=== PATIENT | female | born 1945 | race Hispanic/Latino ===

== ENCOUNTER 2018-11-22 23:04 | Emergency (ER) | payer MEDICARE ==
[~2018-11-22] VITALS: Ht 160 cm; Wt 81.6 kg
--- OUTSIDE RECORDS SUMMARY | 2018-11-22 23:07 | XMS REPORT | Summary of Care ---
Author Author Collins Hurst Organization Unknown Address [facility] Phone Unavailable Care Team Providers Care Medical Lead Name Role Phone EMMANUEL Jacinto, ALEA Unavailable Unavailable [facility], [facility] Unavailable Unavailable FIDEL Jacinto, STEPHAN Unavailable Unavailable LIBBY BARRON MD Unavailable Unavailable Stephan Schaefer MD Unavailable Unavailable Unavailable Unavailable Functional Status Name Dates Details Functional status health issues are not documented Status: Name Dates Details Cognitive status health issues are not documented Status: Problems Name Dates Details Pre-procedure lab exam (V72.63, Z01.812) Status: Active Arthritis (716.90, M19.90) Status: Active Localized primary osteoarthritis of right lower leg (715.16, M17.11) Status: Active Knee pain (719.46, M25.569) Status: Active Limb pain (729.5, M79.609) Status: Active Preoperative clearance (V72.84, Z01.818) Status: Active Encounter to establish care with new doctor (V65.8, Z76.89) Status: Active CAD S/P percutaneous coronary angioplasty (414.01, I25.10) Status: Active Diabetes (250.00, E11.9) Status: Active Hyperlipidemia (272.4, E78.5) Status: Active Hypertension (401.9, I10) Status: Active Exertional angina (413.9, I20.8) Status: Active Medications Name Dates Details Novolin L 100 UNIT/ML SUSP 30 IN THE MORNING AND 15 IN THE EVENING Active Losartan Potassium 100 MG Oral Tablet TAKE 1 TABLET DAILY * Refills: 1 Active 30 Tablet Bottle Linzess 290 MCG Oral Capsule 1 tablet daily * Refills: 0 Active Atorvastatin Calcium 40 MG Oral Tablet 1 tablet daily * Refills: 0 Active Levothyroxine Sodium 50 MCG Oral Tablet TAKE 1 TABLET DAILY. * Refills: 0 Active MetFORMIN HCl - 500 MG Oral Tablet TAKE 1 TABLET TWICE DAILY * Refills: 0 Active Carvedilol 6.25 MG Oral Tablet TAKE 1 TABLET TWICE DAILY * Quantity: 60 Refills: 5 STEPHAN SCHAEFER M.D. * Start : 06-May-2015 Active Meloxicam 7.5 MG Oral Tablet TAKE 1 TABLET BY MOUTH EVERY DAY NEEDED PAIN * Quantity: 30 Refills: 2 ALEA BENITEZ M.D. * Start : 21-Sep-2015 Active Clopidogrel Bisulfate 75 MG Oral Tablet TAKE 1 TABLET BY MOUTH DAILY * Quantity: 30 Refills: 5 STEPHAN SCHAEFER M.D. * Start : 15-Nov-2016 Active Doc-Q-Lace 100 MG CAPS TAKE 1 CAPSULE DAILY * Refills: 0 Active Aspirin 81 MG TABS TAKE 1 TABLET DAILY. * Refills: 0 Active Novolin L 100 UNIT/ML SUSP INJECT 34 UNITS IN THE AM AND 14 UNITS EVENING * Refills: 0 Active Allergies and Adverse Reactions Name Dates Details Penicillins (Allergy) Status: Active Procedures Procedure Dates Details History of Hysterectomy Completed Immunization Name Dates Details Immunizations not documented Family History Name Dates Details Family history of diabetes mellitus (V18.0, Z83.3) Status: Active Social History Name Dates Details - Status: Name Dates Details Never smoker Vital Signs Date Test Result Details No Known Vitals to report Results Date Description Value Details Results not documented Plan of Care Name Dates Details Planned Observations Planned Goals not documented Planned Encounters Appointment; STEPHAN SCHAEFER M.D. On: 19-Nov-2017 14:20 Instructions Name Dates Details Instructions not documented Encounters Appointment; STEPHAN SCHAEFER M.D. Encounter Diagnosis: Problem not documented On: 27-Mar-2016 11:00 Appointment; ALEA BENITEZ M.D. Encounter Diagnosis: Problem not documented On: 29-Mar-2016 11:00 Appointment; ALEA BENITEZ M.D. Encounter Diagnosis: Problem not documented On: 05-Apr-2016 11:15 Appointment; STEPHAN SCHAEFER M.D. Encounter Diagnosis: Problem not documented On: 25-Sep-2016 9:20 Appointment; STEPHAN SCHAEFER M.D. Encounter Diagnosis: Problem not documented On: 05-Oct-2016 13:20 Appointment; STEPHAN SCHAEFER M.D. Encounter Diagnosis: Problem not documented On: 10-Apr-2017 14:20 Appointment; STEPHAN SCHAEFER M.D. Encounter Diagnosis: Problem not documented On: 10-Sep-2017 10:00 Appointment; [facility] ECHO Encounter Diagnosis: Problem not documented On: 12-Nov-2017 8:00 Appointment; [facility] NUCLEAR Encounter Diagnosis: Problem not documented On: 19-Nov-2017 8:00
--- OUTSIDE RECORDS SUMMARY | 2018-11-22 23:07 | XMS REPORT | Continuity of Care Document ---
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 Name Role Phone [facility] [employer] Unavailable Unavailable Problems Problem Status Onset Date Classification Date Reported Comments Source Hypertension Active Problem 09/30/2017 [facility] Hypertensive emergency without congestive heart failure Active Problem 09/30/2017 [facility] Medications Medication Details Route Status Patient Instructions Ordering Provider Order Date Source Amlodipine Besylate 10 Mg Tablet Daily Active [place] 09/30/2017 [facility] Atorvastatin Calcium 10 Mg Tablet, 10 Mg Oral Bedtime Active 09/30/2017 [facility] Lisinopril 10 Mg Tablet, 10 Mg Oral Daily Active 09/30/2017 [facility] Insulin Regular, Human (Humulin R) 100 Unit/1 Ml Vial, 34 Units Subcutaneously Before Breakfast Active 09/29/2017 [facility] Insulin Regular, Human (Humulin R) 100 Unit/1 Ml Vial, 14 Units Subcutaneously Bedtime Active 09/29/2017 [facility] Losartan Potassium 25 Mg Tablet, Active 09/29/2017 [facility] Aspirin (Aspir 81) 81 Mg Tablet.dr Peter Active [facility] Atorvastatin Calcium 20 Mg Tablet Bedtime Active [facility] Carvedilol 3.125 Mg Tablet Twice A Day Active [facility] Clopidogrel Bisulfate (Clopidogrel) 75 Mg Tablet Daily Active [facility] Levothyroxine Sodium 50 Mcg Tablet Daily Active [facility] Linzess Daily Active [facility] Losartan Potassium 100 Mg Tablet Daily Active [facility] Meloxicam 7.5 Mg Tablet Daily Active [facility] Metformin Hcl 500 Mg Tablet Twice A Day Active [facility] Mirabegron (Myrbetriq) 25 Mg Tab.er.24h Twice A Day Active [facility] Allergies, Adverse Reactions, Alerts Substance Category Reaction Severity Reaction type Status Date Reported Comments Source PENNICILLIN RASH Intermediate Allergy to Substance Active 12/04/2014 [facility] Immunizations No Data Provided for This Section Results Order Name Results Value Reference Range Date Interpretation Comments Source Capillary blood glucose measurement by glucometer (mass/volume) Capillary blood glucose measurement by glucometer (mass/volume) 202 70 - 120 09/30/2017 [facility] Serum or plasma creatine kinase MB measurement (mass/volume) Serum or plasma creatine kinase MB measurement (mass/volume) 1.40 0 - 5.0 09/30/2017 [facility] Serum or plasma creatine kinase measurement (enzymatic activity/volume) Serum or plasma creatine kinase measurement (enzymatic activity/volume) 117 29 - 168 09/30/2017 [facility] Troponin I measurement by highly sensitive enzyme immunoassay Troponin I measurement by highly sensitive enzyme immunoassay <0.001 0 - 0.300 09/30/2017 [facility] Automated blood basophil count (count/volume) Automated blood basophil count (count/volume) 0.0 0.0 - 0.1 09/30/2017 [facility] Automated blood basophil count as percentage of total leukocytes Automated blood basophil count as percentage of total leukocytes 0.6 0.0 - 1.0 09/30/2017 [facility] Automated blood eosinophil count Automated blood eosinophil count 0.2 0.0 - 0.4 09/30/2017 [facility] Automated blood eosinophil count as percentage of total leukocytes Automated blood eosinophil count as percentage of total leukocytes 3.4 0.0 - 6.0 09/30/2017 [facility] Automated blood hematocrit (volume fraction) Automated blood hematocrit (volume fraction) 31.4 34.2 - 44.1 09/30/2017 [facility] Automated blood lymphocyte count as percentage ot total leukocytes Automated blood lymphocyte count as percentage ot total leukocytes 22.8 18.0 - 39.1 09/30/2017 [facility] Automated blood monocyte count as percentage of total leukocytes Automated blood monocyte count as percentage of total leukocytes 7.0 4.4 - 11.3 09/30/2017 [facility] Automated blood neutrophil count Automated blood neutrophil count 4.5 2.1 - 6.9 09/30/2017 [facility] Automated blood platelet count (count/volume) Automated blood platelet count (count/volume) 209 140 - 360 09/30/2017 [facility] Automated blood segmented neutrophil count as percentage of total leukocytes Automated blood segmented neutrophil count as percentage of total leukocytes 65.9 38.7 - 80.0 09/30/2017 [facility] Automated erythrocyte mean corpuscular hemoglobin (mass per erythrocyte) Automated erythrocyte mean corpuscular hemoglobin (mass per erythrocyte) 27.7 28 - 32 09/30/2017 [facility] Automated erythrocyte mean corpuscular hemoglobin concentration measurement (mass/volume) Automated erythrocyte mean corpuscular hemoglobin concentration measurement (mass/volume) 32.5 31 - 35 09/30/2017 [facility] Automated erythrocyte mean corpuscular volume Automated erythrocyte mean corpuscular volume 85.3 81 - 99 09/30/2017 [facility] Blood erythrocytes automated count (number/volume) Blood erythrocytes automated count (number/volume) 3.68 3.6 - 5.1 09/30/2017 [facility] Blood hemoglobin measurement (moles/volume) Blood hemoglobin measurement (moles/volume) 10.2 12.0 - 16.0 09/30/2017 [facility] Blood leukocytes automated count (number/volume) Blood leukocytes automated count (number/volume) 6.83 4.8 - 10.8 09/30/2017 [facility] Blood lymphocytes count (number/volume) Blood lymphocytes count (number/volume) 1.6 1.0 - 3.2 09/30/2017 [facility] Blood monocytes automated count (number/volume) Blood monocytes automated count (number/volume) 0.5 0.2 - 0.8 09/30/2017 [facility] Estimated glomerular filtration rate (GFR) determination Estimated glomerular filtration rate (GFR) determination 52 60 09/30/2017 [facility] Glucose measurement Glucose measurement 195 74 - 118 09/30/2017 [facility] Serum or plasma anion gap Serum or plasma anion gap 14.3 8 - 16 09/30/2017 [facility] Serum or plasma calcium measurement (mass/volume) Serum or plasma calcium measurement (mass/volume) 9.4 8.4 - 10.2 09/30/2017 [facility] Serum or plasma carbon dioxide, total measurement (moles/volume) Serum or plasma carbon dioxide, total measurement (moles/volume) 25 22 - 29 09/30/2017 [facility] Serum or plasma chloride measurement (moles/volume) Serum or plasma chloride measurement (moles/volume) 101 98 - 107 09/30/2017 [facility] Serum or plasma cholesterol in HDL measurement (mass/volume) Serum or plasma cholesterol in HDL measurement (mass/volume) 42 40 - 60 09/30/2017 [facility] Serum or plasma cholesterol in LDL measurement (mass/volume) Serum or plasma cholesterol in LDL measurement (mass/volume) 54 60 - 130 09/30/2017 [facility] Serum or plasma cholesterol measurement (mass/volume) Serum or plasma cholesterol measurement (mass/volume) 132 0 - 199 09/30/2017 [facility] Serum or plasma creatinine measurement (mass/volume) Serum or plasma creatinine measurement (mass/volume) 1.05 0.57 - 1.11 09/30/2017 [facility] Serum or plasma magnesium measurement (mass/volume) Serum or plasma magnesium measurement (mass/volume) 1.3 1.3 - 2.1 09/30/2017 [facility] Serum or plasma potassium measurement (moles/volume) Serum or plasma potassium measurement (moles/volume) 4.3 3.5 - 5.1 09/30/2017 [facility] Serum or plasma sodium measurement (moles/volume) Serum or plasma sodium measurement (moles/volume) 136 136 - 145 09/30/2017 [facility] Serum or plasma thyrotropin measurement by detection limit <=0.005 miu/l (units/volume) Serum or plasma thyrotropin measurement by detection limit <=0.005 miu/l (units/volume) 3.653 0.350 - 4.940 09/30/2017 [facility] Serum or plasma thyroxine (T4) free measurement (mass/volume) Serum or plasma thyroxine (T4) free measurement (mass/volume) 1.06 0.9 - 1.8 09/30/2017 [facility] Serum or plasma total cholesterol/cholesterol in HDL mass ratio Serum or plasma total cholesterol/cholesterol in HDL mass ratio 3.1 3.0 - 3.6 09/30/2017 [facility] Serum or plasma triglyceride measurement (mass/volume) Serum or plasma triglyceride measurement (mass/volume) 179 0 - 149 09/30/2017 [facility] Serum or plasma urea nitrogen measurement (mass/volume) Serum or plasma urea nitrogen measurement (mass/volume) 21 7 - 26 09/30/2017 [facility] Serum or plasma urea nitrogen/creatinine mass ratio Serum or plasma urea nitrogen/creatinine mass ratio 20 6 - 25 09/30/2017 [facility] Red Cell Distribution Width 14.4 11.7 - 14.4 09/30/2017 [facility] IM GRANULOCYTES % 0.3 0.0 - 1.0 09/30/2017 [facility] Absolute Immature Granulocyte (auto 0.02 0 - 0.1 09/30/2017 [facility] Hemoglobin A1c Percent 6.6 4.0 - 7.0 09/30/2017 [facility] B-Type Natriuretic Peptide 104.6 0 - 100 09/30/2017 [facility] Plasma globulin measurement (mass/volume) Plasma globulin measurement (mass/volume) 4.2 2.3 - 3.5 09/29/2017 [facility] Serum or plasma alanine aminotransferase measurement (enzymatic activity/volume) Serum or plasma alanine aminotransferase measurement (enzymatic activity/volume) 11 0 - 55 09/29/2017 [facility] Serum or plasma albumin measurement (mass/volume) Serum or plasma albumin measurement (mass/volume) 3.8 3.5 - 5.0 09/29/2017 [facility] Serum or plasma albumin/globulin mass ratio Serum or plasma albumin/globulin mass ratio 0.9 0.8 - 2.0 09/29/2017 [facility] Serum or plasma alkaline phosphatase measurement (enzymatic activity/volume) Serum or plasma alkaline phosphatase measurement (enzymatic activity/volume) 90 40 - 150 09/29/2017 [facility] Serum or plasma protein measurement (mass/volume) Serum or plasma protein measurement (mass/volume) 8.0 6.5 - 8.1 09/29/2017 [facility] Serum or plasma total bilirubin measurement (mass/volume) Serum or plasma total bilirubin measurement (mass/volume) 0.4 0.2 - 1.2 09/29/2017 [facility] Aspartate Amino Transf (AST/SGOT) 15 5 - 34 09/29/2017 [facility] Pathology Reports No Data Provided for This Section Diagnostic Reports No Data Provided for This Section Consultation Notes No Data Provided for This Section Discharge Summaries No Data Provided for This Section History and Physicals No Data Provided for This Section Vital Signs No Data Provided for This Section Encounters Location Location Details Encounter Type Encounter Number Reason For Visit Attending Provider ADM Date DC Date Status Source Discharged Inpatient (obs) [id number] BELLA JULES MD 09/29/2017 09/30/2017 [facility] Procedures Procedure Code Date Perfomer Comments Source Computed tomography of brain without radiopaque contrast [id number] 09/29/2017 [facility] Assessment and Plan No Data Provided for This Section Plan of Care Plan of Care Date Source Discharge Date 09/30/17 2:11pm Disposition HOME, SELF-CARE Instructions/Education Provided Hypertension Prescriptions See Medication Section Referrals (Family Practice) Order Date: 1-2 Weeks Entered Date: 09/30/2017 1:07pm Additional Instructions/Education Activity as tolerated ADA diet Resume home meds plus Amlodipine f/u PCP w/in 2wks 09/30/2017 [facility] Social History Social History Date Source Smoking Status Start Date Stop Date Unknown if ever smoked 09/30/2017 [facility] Family History No Data Provided for This Section Advance Directives Order Name Results Value Date Source Advance Directives Advance Directives Directive Response Recorded Date/Time Does the patient have an advance directive? No 09/29/17 10:06pm If yes, is advance directive on file with [facility]? No 12/04/14 11:01pm If not on file with [facility] will patient provide a copy? No 12/04/14 11:01pm Do you have a Directive to Physician? No 09/29/17 6:33pm Do you have a Medical Power of [employer]? No 09/29/17 6:33pm Do you have an out of hospital Do Not Resuscitate Order? No 09/29/17 6:33pm Do you have any special needs we should be aware of? No 09/29/17 6:33pm Do you have a support person here with you today? Yes 09/29/17 6:33pm Did patient receive Notice of Privacy Practices? Yes 09/29/17 6:33pm Did patient receive patient rights and responsibilities? Yes 09/29/17 6:33pm 09/30/2017 [facility] Functional Status No Data Provided for This Section
--- OUTSIDE RECORDS SUMMARY | 2018-11-22 23:07 | XMS REPORT ---
Author Author [facility] Address Unknown Phone Unavailable Care Team Providers Care First Crusher Name Role Phone BELLA JULES Unavailable Unavailable Problems This patient has no known problems. Allergies, Adverse Reactions, Alerts This patient has no known allergies or adverse reactions. Medications This patient has no known medications. Results Test Description Test Time Test Comments Text Results Atomic Results Result Comments CT BRAIN WO 2017-09-29 19:37:00 [place] [address] Patient Name: KATIE CRAIG MR #: [id number] : 1945 Age/Sex: 72/F Acct #: [id number] Req #: [id number] Adm Physician: BELLA JULES MD Ordered by: ANIBAL GRANGER MD Report #: [id number] Location: [facility] Room/Bed: [place] [address] Procedure: [id number] CT/CT BRAIN WO Exam Date: 09/29/17 Exam Time: 1850 REPORT STATUS: Signed ADDENDUM #1 Dose modulation, iterative reconstruction, and/or weight based adjustment of the mA/kV was utilized to reduce the radiation dose to as low as reasonably achievable. Signed by: Dr. Erica Guadalupe M.D. on 10/31/2017 1:46 AM ORIGINAL REPORT EXAMINATION: Head CT without contrast. HISTORY:Headache, high blood pressure. COMPARISON:CT brain from 12/04/2014. TECHNIQUE: Multidetector axial images were obtained from the foramen magnum to the vertex without contrast. The images were reconstructed using brain and bone algorithms. Thin section brain images were reformatted into coronal and sagittal planes. Intravenous contrast: None IMAGE QUALITY: Acceptable. FINDINGS: Skull/scalp: No lytic or blastic. les ions. No surgical changes. Parenchyma: No abnormal density. No acute hemorrhage, mass or acute major vascular territorial infarct. Arteries: Mild atherosclerotic calcification in bilateral carotid siphon. Dural sinuses: No abnormal density suggestive of thrombosis. Ventricles: No hydrocephalus or displacement. Extra-axial spaces: No abnormal density. Brain volume: Normal for age. Craniocervical junction: No mass, Chiari malformation, or basilar invagination. Sella: No mass. Paranasal/mastoid sinuses: Imaged portions unremarkable. IMPRESSION: No intracranial abnormality. Signed by: Dr. Erica Guadalupe M.D. on 09/29/2017 7:42 PM Dictated By: ERICA GUADALUPE MD [id number] Transcribed By: WILMER on 09/29/17 194 COPY TO: ANIBAL GRANGER MD
[2018-11-22] MEDS ORDERED: SODIUM CHLORIDE 0.9% 1000ML 1,000 ML IV STA (23:09)
[2018-11-22] MEDS ORDERED: ONDANSETRON HCL INJ 2MG/ML 2ML 2 MG/ML VIAL IV STA (23:09)
[2018-11-22] MEDS ORDERED: MORPHINE SULFATE INJ 4 MG/ML INJ 1ML IV STA (23:09)
[2018-11-22] MEDS ORDERED: ASPIRIN 81 MG CHEW TAB PO STA (23:09)
--- NOTE | 2018-11-23 00:16 | Diagnostic Imaging Report ---
EXAMINATION: CHEST SINGLE (PORTABLE) INDICATION: Chest pain, cough COMPARISON: None FINDINGS: AP view TUBES and LINES: None. LUNGS: Lungs are well inflated. Lungs are clear. There is no evidence of pneumonia or pulmonary edema. PLEURA: No pleural effusion or pneumothorax. HEART AND MEDIASTINUM: Borderline cardiomegaly. There are atherosclerotic calcifications within the aorta. BONES AND SOFT TISSUES: No acute osseous lesion. Soft tissues are unremarkable. Degenerative changes in the shoulders an spine. UPPER ABDOMEN: No free air under the diaphragm. IMPRESSION: Borderline cardiomegaly. Signed by: Ganesh Delgado DO on 11/23/2018 12:13 AM
[2018-11-23 00:35] LABS: BASOPHILS % 0.7 % (0.0-1.0); EOSINOPHILS # (AUTO) 0.3 (0.0-0.4); EOSINOPHILS % 5.4 % (0.0-6.0); HEMATOCRIT 32.1 % (34.2-44.1); HEMOGLOBIN 10.4 g/dL (12.0-16.0); LYMPHOCYTES # (AUTO) 1.4 (1.0-3.2); LYMPHOCYTES % 22.2 % (18.0-39.1); MEAN CORPUSCULAR HEMOGLOBIN 29.4 pg (28-32); MEAN CORPUSCULAR HGB CONC 32.4 g/dL (31-35); MEAN CORPUSCULAR VOLUME 90.7 fL (81-99); MONOCYTES # (AUTO) 0.4 (0.2-0.8); MONOCYTES % 7.2 % (4.4-11.3); NEUTROPHILS # (AUTO) 3.9 (2.1-6.9); NEUTROPHILS % 63.8 % (38.7-80.0); PLATELET COUNT 245 x10e3/uL (140-360); RED BLOOD COUNT 3.54 x10e6/uL (3.6-5.1); RED CELL DISTRIBUTION WIDTH 13.1 % (11.7-14.4)
[2018-11-23 00:56] LABS: ALANINE AMINOTRANSFERASE 12 IU/L (0-55); ALBUMIN/GLOBULIN RATIO 1.1 (0.8-2.0); ALKALINE PHOSPHATASE 125 IU/L (40-150); ANION GAP 16.2 mmol/L (8-16); BLOOD UREA NITROGEN 16 mg/dL (7-26); BUN/CREATININE RATIO 18 (6-25); CALCIUM 9.7 mg/dL (8.4-10.2); CARBON DIOXIDE 21 mmol/L (22-29); CHLORIDE 98 mmol/L (98-107); CREATINE KINASE 94 IU/L (29-168); CREATININE, SERUM 0.91 mg/dL (0.57-1.11); EST GLOMERULAR FILTRATION RATE > 60 ML/MIN (60-); GLUCOSE 164 mg/dL (74-118); POTASSIUM 4.2 mmol/L (3.5-5.1); SODIUM 131 mmol/L (136-145)
--- NOTE | 2018-11-23 01:44 | NUR ---
PT STATES SHE IS NO LONGER IN PAIN, REFUSES MORPHINE/ZOFRAN
[2018-11-23 02:00] VITALS: BP 132/51
== END 2018-11-23 02:00 | disposition home or self-care (01) ==
LOC: ER 23:04
DX: R07.89 Other chest pain (principal); R00.1 Bradycardia, unspecified
CPT/HCPCS: 36415; 71045; 80053; 82550; 82553; 84484; 85025; 93005; 99284; J7030; J2270; J2405

== ENCOUNTER 2020-09-24 00:29 | Emergency (ER) | payer MEDICARE, OTHER ==
[~2020-09-24] VITALS: Ht 157.5 cm; Wt 76.2 kg
[2020-09-24] MEDS ORDERED: NITROGLYCERIN 2% OINT 1 GM PKT TOP ONE (01:15)
[2020-09-24] MEDS ORDERED: HYDRALAZINE HCL 20 MG/ML VIAL IV ONE (01:15)
[2020-09-24] MEDS ORDERED: ACETAMINOPHEN 325 MG TAB PO ONE (01:15)
[2020-09-24] MEDS ORDERED: AMLODIPINE BESYL5 MG PO (01:18)
[2020-09-24] MEDS ORDERED: HYDRALAZINE HCL 20 MG/ML VIAL ONE (01:27)
[2020-09-24] MEDS ORDERED: NITROGLYCERIN 2% OINT 1 GM PKT ONE (01:28)
[2020-09-24] MEDS ORDERED: ACETAMINOPHEN 325 MG TAB ONE (01:28)
[2020-09-24 02:18] VITALS: BP 145/65
== END 2020-09-24 02:18 | disposition home or self-care (01) ==
LOC: FSED 01:15
DX: I16.0 Hypertensive urgency (principal); R42 Dizziness and giddiness; E11.9 Type 2 diabetes mellitus without complications; E03.9 Hypothyroidism, unspecified; E78.5 Hyperlipidemia, unspecified; Z95.810 Presence of automatic (implantable) cardiac defibrillator
CPT/HCPCS: 80053; 82553; 84484; 85025; 93005; 96374; 99284; J0360